=== PATIENT | male | born 1960 | race Caucasian/White ===

== ENCOUNTER 2017-12-27 13:51 | Emergency (ER) | payer OTHER ==
[~2017-12-27] VITALS: Ht 188 cm; Wt 97.5 kg
== END 2017-12-27 18:25 | disposition home or self-care (01) ==
LOC: ER 13:51 → CPU-OBS 13:53 → ER 18:25
DX: R07.89 Other chest pain (principal); M54.89 Other dorsalgia
CPT/HCPCS: G0378; G0379; 93005

== ENCOUNTER → 2018-10-12 | Emergency (ER) | payer OTHER | END | disposition left against medical advice (07) | LOC: ER 19:55 | DX: Z53.20 Procedure and treatment not carried out because of patient's decision for unspecified reasons (principal) ==

== ENCOUNTER 2019-03-07 19:20 | Emergency (ER) | payer OTHER ==
[~2019-03-07] VITALS: Ht 188 cm; Wt 98.4 kg
[2019-03-07] MEDS ORDERED: ATORVASTATIN CA10 MG (19:39)
[2019-03-07] MEDS ORDERED: ASPIR 8181 MG (19:39)
[2019-03-07] MEDS ORDERED: CIALIS5 MG (19:45)
[2019-03-08] MEDS ORDERED: PEPCID AC20 MG PO (02:20)
[2019-03-08] MEDS ORDERED: KETO10TA2 PO (02:20)
[2019-03-08] MEDS ORDERED: LEVSIN/SL0.125 MG SL (02:20)
== END 2019-03-08 02:28 ==
LOC: ER 19:20
DX: K80.20 Calculus of gallbladder without cholecystitis without obstruction (principal); R10.11 Right upper quadrant pain

== ENCOUNTER 2019-05-10 05:50 | Day surgery (SDC) | payer OTHER ==
[~2019-05-10 05:50] MED LIST: ASPIR 8181 MG; ATORVASTATIN CA10 MG; CIALIS5 MG; IBERSARTAN PO; KETO10TA2 PO; LEVSIN/SL0.125 MG SL; LIPITOR20 MG PO; PEPCID AC20 MG PO; [UNRECOGNIZED DRUG - OTHER] PO
== END 2019-05-10 13:05 | disposition home or self-care (01) ==
LOC: CIR.AMB 05:50
DX: K80.10 Calculus of gallbladder with chronic cholecystitis without obstruction (principal)